=== PATIENT | male | born 1990 | race Caucasian/White ===

== ENCOUNTER 2022-07-04 00:57 | Emergency (ER) | payer OTHER, SELFPAY ==
--- NOTE | ~2022-07-04 | XR_ITS ---
EXAMINATION: XR CHEST CLINICAL INFORMATION: Chest wall pain and cough. COMPARISON: None TECHNIQUE: Frontal view of the chest was obtained. FINDINGS: No significant abnormality is noted involving the heart, lungs, mediastinum, bony thorax or soft tissues. XR/XR chest 1V IMPRESSION: Unremarkable examination.
[2022-07-04 01:48] VITALS: BP 133/74; PULSE 74; RESP 18; TEMP 36.7; O2SAT 97; BMI 35.4
--- NOTE | 2022-07-04 02:33 | ED_ITS ---
HPI - General Adult General Chief complaint: General Medical Stated complaint: asthma, cough Time Seen by Provider: 07/04/22 02:32 Source: patient Mode of arrival: ambulatory Limitations: no limitations History of Present Illness HPI narrative: Patient with history of asthma when feel congested for last 3 days cough mucopurulent phlegm low-grade fever no other family member sick Related Data Previous Rx's Medication Instructions Recorded albuterol sulfate 90 mcg/actuation 2 puff inhalation Q4-6H PRN 07/04/22 aerosol inhaler (ProAir HFA) shortness of breath or wheezing #8.5 grams amoxicillin 875 mg-potassium 1 tab PO BID #20 tabs 07/04/22 clavulanate 125 mg tablet benzonatate 200 mg capsule 200 mg PO TID PRN cough #30 caps 07/04/22 prednisone 20 mg tablet 40 mg PO DAILY #10 tabs 07/04/22 Allergies Allergy/AdvReac Type Severity Reaction Status Date / Time No Known Allergies Allergy Verified 07/04/22 01:48 Review of Systems Review of Systems: Yes all other systems are reviewed and are negative [facility] Social History Social History Use of substances other than those prescribed or required for medical reasons: No Advance Directives: No Physical Exam ED Vital Signs: Vital Signs - 24 hr 07/04/22 01:48 Temperature 98.1 F Pulse Rate 74 Respiratory Rate 18 Blood Pressure 133/74 Pulse Oximetry 97 Oxygen Delivery Method Room Air BMI result Body Mass Index 35.4 Appearance: Alert. Oriented X3. No acute distress. Eyes: PERRLA, No Nystagmus ENT: Pharynx normal. Oral Mucosa moist Neck: Normal inspection. Neck supple. CVS: Normal heart rate and rhythm. Pulses normal. Respiratory: No respiratory distress. Equal air entry bilateral, no wheezing/rales/rhonchi prolonged expiration Abdomen: Soft and nontender. Bowel sounds are present, no mass palpable, no CVA tenderness Skin: Skin warm and dry. Normal skin color. Normal skin turgor. Extremities: No lower extremity edema. No calf tenderness Neuro: Oriented X 3. Medications Administered Discontinued Medications Generic Name Dose Route Start Last Admin Trade Name Freq PRN Reason Stop Dose Admin Amoxicillin/Clavulanate Potassium 875 mg 07/04/22 03:06 07/04/22 03:13 Amoxicillin/Potassium Clav 875 Mg Tablet PO 07/04/22 03:07 875 mg ONCE ONE Administration Prednisone 40 mg 07/04/22 03:07 07/04/22 03:13 Prednisone 20 Mg Tablet PO 07/04/22 03:08 40 mg ONCE ONE Administration Medical Decision Making MDM Narrative Medical decision making narrative: Patient with acute bronchitis discharge patient home on Augmentin and prednisone Lab Data Lab results reviewed: Yes I reviewed the patient's lab results. Labs: Lab Results 07/04/22 Range/Units 01:57 Influenza Type A (PCR) NEGATIVE (Negative) Influenza Type B (PCR) NEGATIVE (Negative) RSV RNA Qual (PCR) NEGATIVE (Negative) SARS-CoV-2 RNA (RT-PCR) NEGATIVE (Negative) Discharge Plan Discharge Clinical Impression: Acute bronchitis Patient Disposition: Home, Self-Care Instructions: Acute Bronchitis (ED) Additional Instructions: Drink plenty of fluids Take prednisone inhaler and antibiotic as prescribed Follow-up with PCP/report to ER if gets worse Beber mucho l?quido Hallowell el inhalador de prednisona y el antibi?dagoberto seg?n lo prescrito Seguimiento con el PCP/informe a la rafael de emergencias si empeora Prescriptions: New benzonatate 200 mg capsule 200 mg PO TID PRN (Reason: cough) Qty: 30 0RF prednisone 20 mg tablet 40 mg PO DAILY Qty: 10 0RF albuterol sulfate [ProAir HFA] 90 mcg/actuation HFA aerosol inhaler 2 puff inhalation Q4-6H PRN (Reason: shortness of breath or wheezing) Qty: 8.5 0RF amoxicillin-pot clavulanate 875-125 mg tablet 1 tab PO BID Qty: 20 0RF Stand Alone Forms: Work/School Release Interventions: ED Discharge Assessment Last Done: 07/04/22 03:34 Discharge Date/Time: 07/04/22 03:35 Print Language: Maldivian
[2022-07-04 02:41] LABS: Influenza A PCR NEGATIVE (Negative); Influenza B PCR NEGATIVE (Negative); Resp Syncy Virus RNA Qual PCR NEGATIVE (Negative); SARS COV2 PCR INHOUSE NEGATIVE (Negative)
[2022-07-04] MEDS: Amoxicillin/Potassium Clav 875 MG TABLET PO (03:13)
[2022-07-04] MEDS: predniSONE 20 MG TABLET 40 MG PO (03:13)
--- NOTE | 2022-07-04 03:29 | PC.NURSE ---
pt a&o, no sob or chest pain, Medicated per Oct. Reviewed discharge instructions with patient. Pt verbalized understanding.
== END 2022-07-04 03:35 | disposition home or self-care (01) ==
PROVIDERS: Emergency Provider Internal Medicine
DX: J20.9 Acute bronchitis, unspecified (principal); Z20.822 Contact with and (suspected) exposure to COVID-19
CPT/HCPCS: 0241U; 71045; 99283; 99284

== ENCOUNTER 2022-08-01 00:17 | Emergency (ER) | payer OTHER, SELFPAY ==
[2022-08-01 00:31] VITALS: BP 113/75; PULSE 80; RESP 16; TEMP 36.7; O2SAT 98; BMI 37.2
[2022-08-01 01:21] LABS: COVID-19 Test Negative (Negative); IDNOW Serial# 55D5AD1C
[2022-08-01 03:28] VITALS: BP 119/76; PULSE 74; RESP 17; TEMP 37; O2SAT 96
[2022-08-01 04:37] VITALS: BP 121/76; PULSE 71; RESP 18; TEMP 36.4; O2SAT 96
[2022-08-01 06:02] VITALS: BP 136/84; PULSE 62; RESP 18; TEMP 37.1; O2SAT 99
--- NOTE | 2022-08-01 06:45 | PC.NURSE ---
Pt wanted to leave, Pt educated on need to be seen by provider pt left anyway.
== END 2022-08-01 07:01 | disposition left against medical advice (07) ==
PROVIDERS: Emergency Provider Emergency Medicine
DX: R51.9 Headache, unspecified (principal); M79.10 Myalgia, unspecified site; Z20.822 Contact with and (suspected) exposure to COVID-19
CPT/HCPCS: 87635; 99282; 99283